=== PATIENT | male | born 1960 | race Two or more races ===

== ENCOUNTER 2023-06-14 15:47 | Inpatient (IN) | payer BC ==
[2023-06-14 17:32] VITALS: BMI 32.2
[2023-06-14] MEDS ORDERED: IBUPROFEN 400 MG TABLET (FP) PO PRN (18:37)
[2023-06-14] MEDS ORDERED: guaiFENesin 600 MG TABLET.ER (FP) PO PRN (18:37)
[2023-06-14] MEDS ORDERED: LOPERAMIDE HCL 2 MG CAPSULE PO PRN (18:37)
[2023-06-14] MEDS ORDERED: BENZONATATE 200 MG CAPSULE PO PRN (18:37)
[2023-06-14] MEDS ORDERED: BENZOCAINE/MENTHOL (CHLORASEPTIC ) LOZENGE MM PRN (18:37)
[2023-06-14] MEDS ORDERED: MAG HYDROX/AL HYDROX/SIMETH 30 ML UNIT-DOSE CUP PO PRN (18:37)
[2023-06-14] MEDS ORDERED: NICOTINE POLACRILEX 2 MG GUM BUC PRN (18:37)
[2023-06-14] MEDS ORDERED: BISMUTH SUBSALICYLATE 524 MG/30 ML PO PRN (18:37)
[2023-06-14] MEDS ORDERED: POLYETHYLENE GLYCOL (HEALTHYLAX) 3350 17 GM PACKET PO PRN (18:37)
[2023-06-14] MEDS ORDERED: METHOCARBAMOL 500 MG TABLET PO PRN (18:37)
[2023-06-14] MEDS ORDERED: NICOTINE POLACRILEX 2 MG LOZENGE BC PRN (18:37)
[2023-06-14] MEDS ORDERED: MAGNESIUM HYDROX 2400MG/30ML ORAL SUSPENSION 30 ML CUP PO PRN (18:37)
[2023-06-14] MEDS ORDERED: DICYCLOMINE HCL 10 MG CAPSULE PO PRN (18:37)
[2023-06-14] MEDS ORDERED: ACETAMINOPHEN 325 MG TABLET (FP) PO PRN (18:37)
[2023-06-14] MEDS ORDERED: ONDANSETRON *ODT* 4 MG TABLET SL PRN (18:37)
[2023-06-14] MEDS ORDERED: IBUPROFEN 600 MG TABLET (FP) PO PRN (18:37)
[2023-06-14] MEDS ORDERED: hydrOXYzine PAMOATE 25 MG CAPSULE (FP) PO PRN (18:37)
[2023-06-14] MEDS: THIAMINE 100 MG TABLET PO SCH (22:18)
[2023-06-14] MEDS: MELATONIN 5 MG TABLETS PO SCH (22:18)
[2023-06-15] MEDS ORDERED: LORazepam 1 MG TABLET PO PRN (08:19)
[2023-06-15] MEDS: PRENATAL VITAMINS W/ FOLIC ACID TABLET (FP) PO SCH (10:13)
[2023-06-15] MEDS: amLODIPine BESYLATE 5 MG TABLET (FP) PO SCH (10:14)
[2023-06-15] MEDS: LORazepam 2 MG TABLET PO SCH (10:15)
[2023-06-15] MEDS ORDERED: LORazepam 0.5 MG TABLET PO PRN (10:18)
[2023-06-15] MEDS: LORazepam 1 MG TABLET PO SCH (10:40)
[2023-06-15 11:45] LABS: HEMATOCRIT 40.9 % (35.4-49); MCH 28.2 pg (25.7-33.7); MCHC 31.9 g/dl (32.0-35.9); MEAN CELL VOLUME 88.3 fl (80-96); MEAN PLT VOLUME 9.4 fl (7.5-11.1); PLATELET COUNT 215 10^3/uL (134-434); RBC 4.63 M/mm3 (4.00-5.60); RDW 14.7 % (11.9-15.9); WHITE BLOOD COUNT 7.1 K/mm3 (4.0-10.0)
[2023-06-15 11:47] LABS: CHLORIDE 109 mmol/L (98-107); POTASSIUM 4.7 mmol/L (3.5-5.1); SODIUM 141 mmol/L (136-145)
[2023-06-15 11:51] LABS: ALBUMIN 3.3 g/dl (3.4-5.0); ANION GAP 4 mmol/L (4-13); BLOOD UREA NITROGEN 12.6 mg/dL (7-18); CALCIUM 9.2 mg/dL (8.5-10.1); CO2 28 mmol/L (21-32); GLUCOSE,RANDOM 118 mg/dL (74-106)
[2023-06-15 11:52] LABS: CREATININE 0.8 mg/dL (0.55-1.3)
[2023-06-15 11:53] LABS: SGOT/AST 19 U/L (15-37); SGPT/ALT 24 U/L (13-61)
[2023-06-15 11:54] LABS: BILIRUBIN,TOTAL 0.5 mg/dL (0.2-1); TOT PROT 6.4 g/dl (6.4-8.2)
[2023-06-15 11:55] LABS: ALK PHOS 86 U/L (45-117)
[2023-06-17] MEDS: LORazepam 0.5 MG TABLET PO SCH (05:32)
[2023-06-18] MEDS ORDERED: LORazepam 0.5 MG TABLET PO PRN
[2023-06-18] MEDS: LORazepam 0.5 MG TABLET PO SCH (05:33)
[2023-06-19] MEDS: LORazepam 0.5 MG TABLET PO ONE (05:09)
[2023-06-19 05:46] VITALS: TEMP 97.8
[2023-06-19 09:04] VITALS: BP 128/70; PULSE 83; RESP 18
== END 2023-06-19 10:06 | disposition home or self-care (01) | DRG 775 ==
LOC: YASAS 15:47 → Y3N 19:26
PROVIDERS: ADMIT Allergy & Immunology; ATTEND Surgery
PROC: HZ2ZZZZ Detoxification Services for Substance Abuse Treatment (ICD-10-PCS; principal; 2023-06-14)
DX: F10.230 Alcohol dependence with withdrawal, uncomplicated (principal); F17.210 Nicotine dependence, cigarettes, uncomplicated; I10 Essential (primary) hypertension
CPT/HCPCS: 36415; 71046-TC-FY; 80053; 80307; 85027; 86780